=== PATIENT | female | born 1940 | race Caucasian/White ===

== ENCOUNTER → 2019-08-16 14:24 | Outpatient (CLI) | payer MEDICARE, SELFPAY ==
[2019-08-11 10:43] VITALS: BMI 26.6
--- NOTE | 2019-08-16 14:26 | RAD_ITS ---
STUDY: X-RAY - LEFT HAND, ATTENTION SECOND FINGER REASON FOR EXAM: Subungual mass of left index finger, suspicious for melanoma. TECHNIQUE: 3 view(s) of the finger were obtained. COMPARISON: None. FINDINGS: Normal metacarpal head. Normal metacarpophalangeal joint. Normal proximal phalanx. Normal middle phalanx. Normal distal phalanx. There are small marginal osteophytes and joint space narrowing of the proximal interphalangeal joint. There are small marginal osteophytes and joint space narrowing of the distal interphalangeal joint. There is soft tissue swelling of the distal index finger. 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 Soft tissue swelling of the distal index finger. Electronically Signed: Florentin Alves MD at 14:55 EDT Tel , Service support ,
== END ==
PROVIDERS: PCP Internal Medicine; Referring Provider Surgery; Visit Provider Surgery
DX: R22.32 Localized swelling, mass and lump, left upper limb (principal); Z85.828 Personal history of other malignant neoplasm of skin
CPT/HCPCS: 73140

== ENCOUNTER 2019-09-07 07:16 | Day surgery (SDC) | payer MEDICARE, SELFPAY ==
[2019-08-11 10:43] VITALS: BMI 26.6
--- NOTE | 2019-09-06 19:19 | PCM.HP.BLA ---
History and Physical Date of Admission: 09/07/19 HISTORY OF PRESENT ILLNESS Patient is a 78 year old female who was referred to us by Dermatology for an evaluation of a subungual black lesion on the base of her left index fingernail with involvement of the nail. She first noticed the lesion 3 months ago. She denies any trauma. She is right hand dominant. 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 She denies a family history of skin cancer. She comes in today for further evaluation and treatment options. An x-ray was done on 08/16/19. It showed arthrosis of the proximal and distal interphalangeal joints. Soft tissue swelling of the distal index finger. PAST MEDICAL HISTORY Mass of left finger Cataracts, bilateral Skin cancer PAST SURGICAL HISTORY knee surgery squamous cell carcinoma excision ALLERGIES No Known Allergies MEDICATIONS cholecalciferol (vitamin D3) coenzyme Q10 multivitamin FAMILY HISTORY Mother - Diabetes, Hypertension, Heart disease SOCIAL HISTORY Smoking Status: Never smoker alcohol intake: never substance use type: does not use REVIEW OF SYSTEMS General - Denies fever, fatigue, and weight loss. Eyes - She has a history of cataracts and vision issues. ENT - Denies nasal congestion and sore throat. Endocrine - Denies excessive thirst and urination. Skin - She has a history of squamous cell carcinoma on her forehead. Denies family history of skin cancer. Musculoskeletal - Denies joint pain, joint stiffness, weakness of muscles and joints, back pain, and arthritis. She has a history of knee surgery. Neuro - Denies headaches. Cardiovascular - Denies chest pain, fatigue, and shortness of breath with exertion. Psych - Denies anxiety and depression. Respiratory - Denies chronic cough and shortness of breath. Gastrointestinal - Denies nausea, vomiting, diarrhea, and constipation. Hematologic - Denies abnormal bruising and bleeding. Genitourinary - Denies hematuria and urinary frequency. PHYSICAL EXAMINATION General - Alert and oriented. HEENT - PERRL. EOMI. Throat is clear. No suspicious lesions noted. Neck - Supple and non-tender. No cervical adenopathy. No suspicious lesions noted. Lungs- Clear to auscultation. Heart - Regular rate and rhythm. Abdomen - Soft and non distended. Extremities - FROM. No axillary adenopathy. Radial pulses are palpable. On the left index finger there is a subungual lesion proximally that is involving the nail plate extending to the eponychial fold. It is black in color. There is no exposed bone. The area is nontender. It measures 1 cm. other suspicious lesions noted. Neuro - CN II-XII grossly intact. Psych - Normal mood and affect. ASSESSMENT 1. 1 cm black subungual lesion involving the proximal left index finger nail extending to the eponychial fold. 2. Nail grooving left index finger. 3. Personal history of skin cancer. PLAN Patient has a black subungual lesion involving the proximal left index finger nail extending to the eponychial fold. There is suspicion for melanoma versus chronic fungus disease. Recommend excision of this black subungual lesion and send it to Pathology for analysis to rule out carcinoma. I anticipate there will be exposed bone after the excision since I don't want to do a shave excision because of concern for melanoma. Reconstruction will be done with a nail bed graft taken from the big toe. If the nail bed graft fails, can always remove the nail complex and preserve length with a cross finger flap and skin grafting. If melanoma is present, then a proximal amputation would be necessary. Would also send some of the tissue to Microbiology for culture. If fungus is present then Diflucan would be necessary. Preop, an x-ray was done on 08/16/19. It showed arthrosis of the proximal and distal interphalangeal joints. Soft tissue swelling of the distal index finger. Surgery will be done under local anesthesia with a digital metacarpal block and tourniquet control and IV sedation on an outpatient basis. Patient was informed of the risks and complications of the procedure including alternatives to surgery. These were discussed with the patient personally. Patient voices understanding and wishes to proceed. Some of the risks and complications were included in a form from the [place] [employer]. Some of the risks and complications that were discussed included but were not inclusive of failure to diagnose including symptom relief, pain, infection, numbness, stiffness, loss of digit, RSD (CRPS), need for further surgery, contracture, and wound healing problems. We discussed the current risks associated with COVID-19. While it is understood that there is a community spread of COVID-19, the risk of kari COVID-19 while at [facility] ([facility]) is very low; however, the risk cannot be completely mitigated because of the community spread of the disease. We discussed in detail the risk of exposure to and/or potential harm posed by the COVID-19 virus with having a surgery/procedure at this time versus the risk of delaying the surgery/procedure. It is not possible to know either the risk of delaying the surgery or procedure or chance of getting an infection with perfect accuracy, but a joint decision was made to proceed at this time with the scheduled surgery/procedure as indicated on the consent form. Patient was notified that we will need to comply with any screening or testing [facility] wishes to perform or that surgery may be delayed for any positive results. Discussed with the patient that I was tested for COVID-19 on 08/19/19. My test was negative. My testing regimen at this time is to be COVID-19 tested every 2 weeks or so. I was recently tested on 09/02/19, and that test was negative. Procedure Criteria Procedure Type: Elective COVID Risk Discussion: The surgeon/proceduralist and patient have discussed in detail the risk of exposure to and/or potential harm posed by the COVID-19 virus with having a surgery/procedure at this time versus the risk of delaying the surgery/procedure. It is not possible to know either the risk of delaying the surgery or procedure or chance of getting an infection with perfect accuracy, but a joint decision was made between the patient and the surgeon/proceduralist to proceed at this time with the scheduled surgery/procedure as indicated on the consent form.
[2019-09-07] VITALS (7 sets, daily range): BP systolic 110–144; BP diastolic 54–67; PULSE 77–84; RESP 14–16; TEMP 36.4–36.7; O2SAT 98–100; BMI 25.2
[2019-09-07] MEDS: Lactated Ringers 1,000 ML 100 ML IV (07:52)
[2019-09-07] MEDS: Cefazolin 2 GM in 0.9% Normal Saline 100 ML IV (08:31)
[2019-09-07] MEDS: Mupirocin Ointment 22gm Tube 1 APPLIC (08:44)
--- NOTE | 2019-09-07 08:55 | LES_PTH ---
PATIENT: ROLANDO COLEMAN LOC: [facility] [place] U#:[id number] AGE/SX: 78/F ROOM: RE09/07/[address]: Dr. Berto Velasquez MD : 1940 BED: DIS: 09/07/2019 SPEC #: [id number] RECD: 09/07/19 09:43 STATUS: SLICK JENA #: [id number] TIA: 09/07/19 08:[address]: Berto Velasquez DEPT: SURGICAL PATHOLOGY RECD BY: Rojelio Cai ENTERED: 09/07/19 10:18 SP TYPE: Lesion OTHR DR: Dr. Livia Cartagena MD Tissues: Skin of finger, NOS Procedures: Surgery Specimen Level IV HEADER OPERATION: Excision subungual mass index finger PRE-OP DIAGNOSIS: 1 cm black subungual lesion left index finger TISSUE SUBMITTED: Left index finger nailbed MICROSCOPIC DIAGNOSIS Left index finger nailbed, biopsy: Hyperkeratotic skin. No evidence of malignancy. See comment. AM:arabella 09/08/19 COMMENT The lesion may represent a cutaneous horn. Clinical correlation is suggested. MICROSCOPIC DESCRIPTION Slides are reviewed. GROSS DESCRIPTION Received in fixative is one container labeled with the patient's name and designated left index finger nailbed. The specimen consists of a pablo, indurated piece of skin with underlying tissue measuring 0.6 x 0.3 x 0.2 cm. The specimen is inked and submitted entirely in one cassette. / SJ:arabella 09/07/19 TC:5 CPT: 52334
--- NOTE | 2019-09-07 09:03 | OP.PCM_ITS ---
Report of Operation Date of Procedure: 09/07/19 Pre-Operative Diagnosis: 1. 1 cm black subungual lesion involving the proximal left index finger nail extending to the eponychial fold. 2. Nail grooving left index finger. 3. Personal history of skin cancer. Post-Operative Diagnosis: 1. 1 cm black lesion proximal nail extending to the eponychial fold left index finger. 2. Nail grooving left index finger. 3. Personal history of skin cancer. Surgery/Procedure Performed:: Excision 1 cm black lesion proximal nail extending to the eponychial fold left index finger. Description of Surgical Findings:: Patient is a 78 year old female who was referred to us by Dermatology for an evaluation of a subungual black lesion on the base of her left index fingernail with involvement of the nail. She first noticed the lesion 3 months ago. She d enies any trauma. She is right hand dominant. 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 She denies a family history of skin cancer. An x-ray was done on 08/16/19. It showed arthrosis of the proximal and distal interphalangeal joints. Soft tissue swelling of the distal index finger. Patient was informed of the risks and complications of the procedure including alternatives to surgery. These were discussed with the patient personally. Patient voices understanding and wishes to proceed. Some of the risks and complications were included in a form from the [employer] [place] [employer]. Some of the risks and complications that were discussed included but were not inclusive of failure to diagnose including symptom relief, pain, infection, numbness, stiffness, loss of digit, RSD (CRPS), need for further surgery, contracture, and wound healing problems. Total tourniquet time - 10 minutes. 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 Specimen's removed: Black lesion proximal nail extending to eponychial fold left index finger to Pathology and Microbiology. Drains: None. Estimated Blood Loss (mL): 1 ml. Description of Procedure: Patient was taken to OR in supine position and was given IV sedation. The left hand was prepped and draped in the usual fashion. SCD's were placed for DVT prophylaxis. Perioperative antibiotics were given intravenously. For the procedure, I wore an N95 mask and wore proper eye protection. The left index finger was infiltrated with xylocaine and epinephrine as a digital metacarpal block. After waiting 5 minutes for the anesthetic to take effect, a digital tourniquet was applied at the base of the left index finger. I removed the finger nail using a scalpel and elevator. When the nail plate was removed, the underlying nail bed was intact. The black lesion was involving the proximal nail plate and not the nail bed as a subungual lesion. I excised the black lesion and sent it to Pathology for analysis to rule out carcinoma. A small sample was sent to Microbiology for culture since a chronic fungal infection can present as a discolored lesion. I then replaced the nail plate back on as a biologic dressing. A small portion of the nail bed will be exposed where the black nail lesion was excised. I secured the nail plate to the eponychial fold and paronychial folds and hyponychial area with 5-0 Nylon simple interrupted sutures. Antibiotic ointment was applied to the exposed nail bed and surrounding nail plate and covered with Xeroform gauze and 2x2 gauze and a 2 inch Rl wrap. Prior to the dressing, the tourniquet was removed after 10 minutes. Hemostasis was obtained with gauze compression. Patient tolerated the procedure well and was sent to PACU in satisfactory condition. Patient will be sent home on antibiotics and pain medication. Patient will followup in a week for a wound check and for discussion of the pathology report and for discussion of the microbiology report. The nail sutures will be removed in two weeks. Grafts/Implants Used: None. - Complications None. - Admit VTE Documentation VTE Present on Admission: No VTE Mechan Device Prophylaxis: SCD's VTE Pharm Prophylaxis ordered?: No Surgery Charges CPT - 16620 ICD-10 - R22.32, L60.8, Z85.828
--- NOTE | 2019-09-07 09:18 | PCM.DC ---
You will use the following diet at home:: No restrictions Discharge Activity: May Shower - in one day. wear plastic bag over left hand when showering., - - elevate left hand. May shower in (days): 1 - wear plastic bag over left hand when showering. Weight Bearing Status: Weight bearing as tolerated Keep extremity elevated above heart level: Left Arm Call your doctor if your incision/area has: Continuous Slow Oozing, Sudden Increased Bleeding, Increased Pain/ Swelling, Increased Redness, Foul Smelling Discharge, Swelling at the incision site Call your doctor if you observe: Fever of 101 or Higher, Coldness, Increased Pain, Shortness of breath, Chest pain, Calf discomfort, Uncontrolled pain Suture Line Care: - - after operative dressing removed in the office, apply antibiotic ointment to left index finger nail suture line daily. Change Dressing in (Days):: 7 - will change operative dressing in the office. Cleanse incision/area with: - - wear plastic bag over left hand when showering. Allergies/Adverse Reactions: Allergies No Known Allergies Allergy (Verified 09/07/19 07:24) Medications to take at Discharge coenzyme Q10 75 mg capsule 75 mg PO DAILY 08/11/19 tuwinfpz-rao-iyrtn acid 0.4 mg-lycopene 300 mcg-lutein 250 mcg tablet 1 tab PO DAILY 08/11/19 Cholecalciferol (Vitamin D3) [Vitamin D3] 5,000 unit PO DAILY 09/03/19 Daily Defense 1 tab PO DAILY 09/03/19 Vit C/Vit E AC/Lut/Copper/Zinc [Preservision Lutein Softgel] 1 ea PO BID 09/03/19 Cefadroxil [Duricef] 500 mg PO BID #8 cap 09/07/19 Lactobacillus Acidophilus/Fos [Acidophilus Probiotic Tablet] 1 ea PO BID #10 tab 09/07/19 Oxycodone HCl/Acetaminophen [Percocet 5/325] 1 tablet PO Q6H PRN PRN 4 Days #15 tablet 09/07/19 The following prescriptions were given: Lactobacillus Acidophilus/Fos [Acidophilus Probiotic Tablet] 1 ea PO BID #10 tab Transmission Status: Pending to [facility] Cefadroxil [Duricef] 500 mg PO BID #8 cap Transmission Status: Pending to [facility] Oxycodone HCl/Acetaminophen [Percocet 5/325] 1 tablet PO Q6H PRN PRN 4 Days #15 tablet PRN Reason: Pain Score 4-5/10 Transmission Status: Sent to [facility] Orders to be completed after discharge: CORONAVIRUS 19, MAYANK SCREEN Time Frame: 09/05/19, Facility: [facility], Location: Laboratory Primary Care Physician: Livia Cartagena MD [Primary Care Provider] - Test Results: Test results from this visit will be discussed in further detail at your follow-up appointment, if applicable. Please Follow Up With: Berto Velasquez MD When: one week. call [phone] for appt. Proposed Discharge Date: 09/07/19
== END 2019-09-07 10:07 | disposition home or self-care (01) ==
LOC: SDC 07:18 → AC 07:21
PROVIDERS: Anesthesiology; PCP Internal Medicine; Referring Provider Surgery; Visit Provider Surgery
PROC: (CPT 11750; principal; 2019-09-07 08:40)
DX: L57.0 Actinic keratosis (principal); Z85.828 Personal history of other malignant neoplasm of skin
CPT/HCPCS: 00400; 11750; 87070; 87075; 87077; 87102; 87106; 87186; 87205; 87206; 87635; 88305; G2023; J7120; U0003

== ENCOUNTER → 2019-10-13 16:02 | Outpatient (CLI) | payer MEDICARE, SELFPAY ==
[2019-10-07 08:59] VITALS: BMI 25.2
[2019-10-13 18:05] LABS: AST(SGOT) 13 U/L (15-37); Alanine Aminotransfer ALT/SGPT 27 U/L (13-56); Albumin, Serum 3.5 g/dL (3.2-5.0); Alkaline Phosphatase 64 U/L (45-117); Bilirubin, Direct 0.08 mg/dL (0.00-0.30); Globulin 3.4 g/dL (2.2-4.2); Protein, Total 6.9 g/dL (6.4-8.2)
== END ==
PROVIDERS: PCP Internal Medicine; Referring Provider Nurse Practitioner Family; Visit Provider Nurse Practitioner Family
DX: R22.32 Localized swelling, mass and lump, left upper limb (principal); L60.8 Other nail disorders; B37.2 Candidiasis of skin and nail; Z85.828 Personal history of other malignant neoplasm of skin
CPT/HCPCS: 36415; 80076

== ENCOUNTER → 2019-11-16 12:03 | Outpatient (CLI) | payer MEDICARE, SELFPAY ==
[2019-10-07 08:59] VITALS: BMI 25.2
[2019-11-16 16:11] LABS: AST(SGOT) 21 U/L (15-37); Alanine Aminotransfer ALT/SGPT 32 U/L (13-56); Albumin, Serum 3.8 g/dL (3.2-5.0); Alkaline Phosphatase 75 U/L (45-117); Bilirubin, Direct 0.13 mg/dL (0.00-0.30); Globulin 3.9 g/dL (2.2-4.2); Protein, Total 7.7 g/dL (6.4-8.2)
== END ==
PROVIDERS: PCP Internal Medicine; Referring Provider Nurse Practitioner Family; Visit Provider Nurse Practitioner Family
DX: L60.8 Other nail disorders (principal); R22.32 Localized swelling, mass and lump, left upper limb; B37.2 Candidiasis of skin and nail; Z85.828 Personal history of other malignant neoplasm of skin
CPT/HCPCS: 36415; 80076

== ENCOUNTER → 2019-12-10 14:34 | Outpatient (CLI) | payer MEDICARE, SELFPAY ==
[2019-10-07 08:59] VITALS: BMI 25.2
[2019-12-10 18:24] LABS: AST(SGOT) 19 U/L (15-37); Alanine Aminotransfer ALT/SGPT 31 U/L (13-56); Albumin, Serum 3.6 g/dL (3.2-5.0); Alkaline Phosphatase 68 U/L (45-117); Bilirubin, Direct 0.07 mg/dL (0.00-0.30); Globulin 3.7 g/dL (2.2-4.2); Protein, Total 7.3 g/dL (6.4-8.2)
== END ==
PROVIDERS: PCP Internal Medicine; Referring Provider Nurse Practitioner Family; Visit Provider Nurse Practitioner Family
DX: R22.32 Localized swelling, mass and lump, left upper limb (principal); L60.8 Other nail disorders; B37.2 Candidiasis of skin and nail; Z85.828 Personal history of other malignant neoplasm of skin
CPT/HCPCS: 36415; 80076

== ENCOUNTER 2023-08-31 14:03 | Emergency (ER) | payer MEDICARE, SELFPAY ==
[2023-08-31 14:05] VITALS: BP 154/89; PULSE 87; RESP 18; TEMP 36.3; O2SAT 95; BMI 23.6
--- NOTE | 2023-08-31 14:23 | EDS_ITS ---
HPI HPI - Fall History of Present Illness Chief Complaint: Fall Informant: patient Occured/Mechanism Occurred: Days (2 days ago) Mechanism/Context: Yes same level fall Pain/Injury Pain Location: head, chest (Right ribs) and lower extremity (Right hip) Quality of Pain: Dull Worsened by: Nothing Relieved by: Nothing Associated Symptoms Associated Symptoms: Negative for Parasthesias, Weakness, Loss of function, Inability to ambulate, Loss of consciousness or Amnesia Narrative Narrative: Patient presents after a fall that occurred 2 days ago. Patient states she slipped and fell in her bathroom. Patient states she hit her head on the bathroom door. Patient states she landed on her right side and has been having some pain in her right lower ribs and right hip since the fall. Patient states she was able to ambulate after the fall. Patient states that she feels woozy today. Patient states that she has intermittent episodes of feeling woozy. Patient denies any paresthesias or weakness. Patient denies any other injuries. Patient states her last tetanus was within 5 years. Tetanus Immunization: <5 years [facility] Medical History (Updated 08/31/23 @ 15:[address] Wisam Guy, DO) Acquired deformity of nail of finger Mass of left finger Vision problems Skin cancer Cataracts, bilateral Home Medications ?Medication ?Instructions ?Recorded ?Last Taken ?Type coenzyme Q10 75 mg capsule (Ultra 75 mg PO DAILY 08/11/19 Unknown History CoQ10) rtcmnvgr-ocn-saxnq acid 0.4 1 tab PO DAILY 08/11/19 Unknown History mg-lycopene 300 mcg-lutein 250 mcg tablet (Centrum Silver) Cholecalciferol (Vitamin D3) 5,000 unit PO DAILY 09/03/19 Unknown History [Vitamin D3] Daily Defense 1 tab PO DAILY 09/03/19 Unknown History vit C 226 mg-vit E 90 mg-copper 1 ea PO BID eyes 09/03/19 Unknown History 0.8 mg-zinc oxide-lutein 5 mg capsule Allergy/AdvReac Type Severity Reaction Status Date / Time No Known Allergies Allergy Verified 08/31/23 14:05 Family History Mother Diabetes Hypertension Heart disease Surgical History History of excision of lesion History of squamous cell carcinoma excision History of knee surgery Social History Smoking Status: Never smoker alcohol intake: never substance use type: does not use additional social history: DOES NOT TAKE ASPIRIN DOES NOT TAKE IBUPROFEN ROS ROS ED Constitutional Constitutional ED: Denies chills or fever(s) Eyes Eyes: Denies blurry vision or change in vision ENT ENT ED: Denies rhinorrhea or sore throat Cardiovascular Cardiovascular: Denies chest pain or palpitations Respiratory/Chest Respiratory/Chest: Reports cough; Denies dyspnea Gastrointestinal Gastrointestinal: Reports nausea; Denies vomiting Genitourinary Genitourinary ED: Denies dysuria or hematuria Musculoskeletal Musculoskeletal: Reports back pain; Denies neck pain Integumentary Denies abscess or rash Neurologic Neurologic: Reports headache(s); Denies weakness Allergic/Immunologic Allergic/Immunologic ED: Denies mouth swelling or urticaria EXAM Physical Exam Const Vital Signs: 08/31/23 14:05 08/31/23 14:15 Temperature 97.4 F L Temperature Source Temporal Pulse Rate 87 Respiratory Rate 18 Respiratory Effort Normal Respiratory Depth Normal Respiratory Pattern Normal Blood Pressure 154/89 H Blood Pressure Mean 110 Pulse Ox 95 Oxygen Delivery Method Room Air Positive well nourished and well developed General Appearance ED: well developed and NAD HEENT Reports normocephalic HEENT Narrative: There is mild tenderness over the right occipital scalp. There is no edema or ecchymosis. There is no bony crepitance or step-off noted. Neck full ROM and supple Neck Narrative: There is mild tenderness over the right cervical paraspinal muscles. There is no midline tenderness. There is no bony crepitance or step-off. There is no edema or ecchymosis. There is good range of motion. Chest Wall Chest Narrative: There is tenderness over the right lower ribs, approximately seventh, eighth, and ninth ribs. There is no bony crepitance or step-off. There is no subcutaneous emphysema noted. Resp normal respiratory effort and clear to auscultation bilaterally Cardio regular rate and regular rhythm GI non-tender and non-distended Palpation: soft Extremity Extremity Narrative: There is mild tenderness over the right hip. There is no pain with internal or external rotation. There is good flexion of the right hip. There is no calf tenderness noted. Neuro oriented x3, CN's II-XII intact bilaterally, moves all extremities, no focal motor deficits and no sensory deficits noted Grace Coma Scale: document GCS findings Spontaneous Obeys Commands Oriented 15 Sensorium / Orientation: alert Motor Exam: strength 5/5 throughout MDM MDM MDM Narrative Medical decision making narrative: Differential diagnosis includes intracranial bleeding, closed head injury, rib fracture, rib contusion, hip fracture, hip strain, and contusion. CT scan of the brain will be obtained to assess for intracranial bleeding. X-rays of the right ribs will be obtained to assess for rib fracture and pneumothorax. X-rays of the right hip will be obtained to assess for hip fracture. Radiography Diagnostic Testing: Clinical Impression(s) from Imaging Studies Brain CT 08/31/23 14:28 IMPRESSION: There are no acute findings. Chronic involutional changes of the brain. Electronically Signed: Cale Becerra MD at 15:02 EDT , Hip/Pelvis X-Ray 08/31/23 14:45 IMPRESSION: No acute findings in the pelvis or right hip. Electronically Signed: Cale Becerra MD at 15:13 EDT , Ribs w/Chest X-Ray 08/31/23 14:45 IMPRESSION: No acute findings Electronically Signed: Cale Becerra MD at 15:17 EDT , X-rays of the right ribs were obtained. There are 3 views. On my independent interpretation, there is no acute rib fracture. There is no pneumothorax. There is no pulmonary contusion. Radiologist also interpreted the x-rays and agrees. X-rays of the right hip were obtained. There are 3 views. On my independent interpretation, there is no acute fracture or dislocation noted. Radiologist also interpreted the x-rays and agrees. CT scan of the brain was obtained. There is no acute intracranial abnormality. There are chronic involutional changes noted. This was interpreted by the radiologist and was also independently reviewed by myself. Treatment and Re-Evaluation Narrative: Patient was advised of her findings. Patient was instructed to use ice to the ribs and right hip. Patient was instructed to take Tylenol or ibuprofen as needed for pain. Patient was instructed to follow-up with her primary care physician in 5 to 7 days. Patient understood and was agreeable with the plan. All questions were answered. Discharge Plan Triage Chief Complaint: Fall ED Provider: Wisam Guy Dx/Rx/DC Orders Clinical Impression: Closed head injury, Contusion of rib on right side, Contusion of right hip, initial encounter Instructions: ED Head Injury (Adult), ED Hip Contusion, ED Bruise, Rib Prescriptions: No Action Centrum Silver 0.4-300-250 mg-mcg-mcg tablet 1 tab PO DAILY Ultra CoQ10 75 mg capsule 75 mg PO DAILY Cholecalciferol (Vitamin D3) [Vitamin D3] 5,000 UNIT capsule 5,000 unit PO DAILY Daily Defense 1 tab PO DAILY vit I-J-ivando-zinc-lutein 1 EACH capsule 1 ea PO BID Primary Care Provider: Livia Cartagena Referrals: Livia Cartagena MD [Primary Care Provider] - 5-7 Days Print Language: Bur[place]ian Disposition Disposition: Home, Self Care
--- NOTE | 2023-08-31 14:28 | CT_ITS ---
STUDY: CT BRAIN WITHOUT CONTRAST REASON FOR EXAM: Female, 82 years old. Injury/Pain Individualized dose optimization techniques were used for this CT. TECHNIQUE: Transaxial CT imaging of the brain was performed without administration of intravenous contrast material. COMPARISON: 08/17/2012 FINDINGS: There are calcifications around the carotid artery. These are noted in the cavernous carotid arteries. Normal calvarium. Normal soft tissues. There is mild cerebral atrophy with widening of the extra-axial spaces and ventricular dilatation. There are areas of decreased attenuation within the white matter tracts of the supratentorial brain, consistent with microvascular disease changes. There are small punctate calcifications of the basal ganglia which are seen in the aging brain as a normal variant. Normal brainstem. There is mild cerebellar atrophy. There is no intracranial hemorrhage. There are no findings of an acute ischemic infarction. Normal visualized paranasal sinuses. ASPECTS Score for Acute Strokes: 11/26 CT/Brain/Head without Contrast IMPRESSION: There are no acute findings. Chronic involutional changes of the brain. Electronically Signed: Cale Becerra MD at 15:02 EDT ,
--- NOTE | 2023-08-31 14:45 | RAD_ITS ---
STUDY: X-RAY - BILATERAL RIBS REASON FOR EXAM: Female, 82 years old. Trauma. Pain TECHNIQUE: Single view of the chest and 2 views of the right ribs. COMPARISON: None. FINDINGS: Normal visualized ribs without a demonstrated fracture. The visualized lungs are clear and expanded. Normal heart, mediastinum and pulmonary ping. RAD/Ribs Uni Min 3V w/PA Chest IMPRESSION: No acute findings Electronically Signed: Cale Becerra MD at 15:17 EDT ,
--- NOTE | 2023-08-31 14:45 | RAD_ITS ---
EXAM: XR RIGHT HIP WITH PELVIS WHEN PERFORMED, 2 OR 3 VIEWS CLINICAL INDICATION: Injury/Pain TECHNIQUE: Two or three views of the right hip with pelvis when performed. COMPARISON: No relevant prior studies available. FINDINGS: BONES/JOINTS: Unremarkable. No displaced fracture. No destructive or sclerotic lesions. Note that overlapping bowel shadows may however obscure fine detail. Sacroiliac joint is unremarkable. No widening of the pubic symphysis. The articular structures are unremarkable. SOFT TISSUES: Unremarkable. No soft tissue swelling or gas. VASCULATURE: Vascular calcifications. RAD/HIP, UNI W/ Pelvis 2-3 Views IMPRESSION: No acute findings in the pelvis or right hip. Electronically Signed: Cale Becerra MD at 15:13 EDT ,
[2023-08-31 15:33] VITALS: BP 154/89; PULSE 78; RESP 17; TEMP 36.5; O2SAT 98
== END 2023-08-31 15:35 | disposition home or self-care (01) ==
PROVIDERS: Emergency Provider Emergency Medicine; PCP Internal Medicine; Visit Provider Emergency Medicine
DX: S09.90XA Unspecified injury of head, initial encounter (principal); S20.211A Contusion of right front wall of thorax, initial encounter; S70.01XA Contusion of right hip, initial encounter; W18.30XA Fall on same level, unspecified, initial encounter
CPT/HCPCS: 70450; 71101; 73502; 99282